=== PATIENT | female | born 1975 | race Caucasian/White ===

== ENCOUNTER → 2022-03-30 15:57 | Outpatient (CLI) | payer OTHER, SELFPAY ==
--- NOTE | 2022-03-30 16:00 | DI.US.S_ITS ---
PROCEDURE: US ABDOMEN LIMITED INDICATIONS: Abnormal results of liver function studies TECHNIQUE: Real-time focused scanning was performed of the abdomen, with image documentation. COMPARISON: None. FINDINGS: Liver is diffusely increased in echogenicity. No focal hepatic abnormalities identified. Normal hepatic size. No gallstones identified. Normal gallbladder wall. No pericholecystic fluid. Negative sonographic Lawson sign. No biliary dilatation. 5 mm echogenic focus involving the inferior pole of the right kidney which may represent a small nonobstructing stone. IMPRESSION: 1. Increased hepatic echogenicity noted possibly related to hepatic steatosis but other sources of hepatocellular disease cannot be excluded. Recommend clinical correlation. 2. Possible nonobstructing 5 mm inferior pole right renal calcification. Dictated by: Amado Alfred Ellen Interpreted: Joel Wetzel MD on 03/30/2022 at 16:24 Transcribed by: [email or web address] on 03/30/2022 at 16:26 Approved by: Joel Wetzel M.D. on 03/30/2022 at 17:04
== END ==
PROVIDERS: Referring Provider Physician Assistant; Visit Provider Physician Assistant
DX: R94.5 Abnormal results of liver function studies (principal)
CPT/HCPCS: 76705